=== PATIENT | male | born 1990 | race Hispanic/Latino ===

== ENCOUNTER 2021-11-25 10:46 | Emergency (ER) | payer OTHER ==
[~2021-11-25] VITALS: Ht 180.3 cm; Wt 122.5 kg
[2021-11-25 10:52] VITALS: BP 122/75
[2021-11-25] MEDS ORDERED: CEPH500B PO (11:45)
[2021-11-25] MEDS ORDERED: MUPI22O TP (11:45)
[2021-11-25] MEDS ORDERED: TETANUS/DIPHTHERIA TOXOID [ADULT] 0.5 ML VIAL IM ONE (12:00)
[2021-11-25] MEDS ORDERED: CEPHALEXIN 500 MG CAPSULE PO ONE (12:00)
== END 2021-11-25 11:58 | disposition home or self-care (01) ==
LOC: EDH 10:46
DX: S31.119A Laceration without foreign body of abdominal wall, unspecified quadrant without penetration into peritoneal cavity, initial encounter (principal); E66.9 Obesity, unspecified; Z68.37 Body mass index [BMI] 37.0-37.9, adult; Z90.49 Acquired absence of other specified parts of digestive tract; X58.XXXA Exposure to other specified factors, initial encounter; Y93.89 Activity, other specified; Y92.89 Other specified places as the place of occurrence of the external cause; Y99.8 Other external cause status
CPT/HCPCS: 90471; 90714